=== PATIENT | female | born 2000 | race Two or more races ===

== ENCOUNTER 2021-04-06 19:33 | Emergency (ER) | payer OTHER ==
[~2021-04-06] VITALS: Ht 149.9 cm; Wt 45.4 kg
== END 2021-04-06 22:19 | disposition home or self-care (01) ==
LOC: ER 19:33 → EMR PED 19:33 → ER 20:10 → EMR PED 20:10
DX: S00.83XA Contusion of other part of head, initial encounter (principal); W18.09XA Striking against other object with subsequent fall, initial encounter; Y93.89 Activity, other specified; Y92.098 Other place in other non-institutional residence as the place of occurrence of the external cause; Y99.8 Other external cause status; R55 Syncope and collapse

== ENCOUNTER 2024-07-27 10:48 | Emergency (ER) | payer OTHER ==
[~2024-07-27] VITALS: Ht 149.9 cm; Wt 57.2 kg
[2024-07-27] MEDS ORDERED: KETOROLAC TROMETHAMINE 60 MG VIAL IM STA (13:50)
[2024-07-27] MEDS ORDERED: KETOROLAC TROMETHAMINE 60 MG VIAL IM ONE (14:02)
== END 2024-07-27 15:44 | disposition home or self-care (01) ==
LOC: ER 10:50
DX: S93.492A Sprain of other ligament of left ankle, initial encounter (principal); X50.9XXA Other and unspecified overexertion or strenuous movements or postures, initial encounter; Y93.89 Activity, other specified; Y92.018 Other place in single-family (private) house as the place of occurrence of the external cause; S92.352A Displaced fracture of fifth metatarsal bone, left foot, initial encounter for closed fracture